=== PATIENT | female | born 2000 | race Caucasian/White ===

== ENCOUNTER 2025-09-20 11:20 | Emergency (ER) | payer OTHER, SELFPAY ==
--- OUTSIDE RECORDS SUMMARY | 2025-09-20 11:22 | XMS_ITS | Clinical Summary ---
Author Organization [facility] Address [address] [place] [address] Care Team Providers Care Brand Marketing Manager Name Role Phone No, Pcp INTERNATIONAL REPRESENTATIVE Primary Care Provider Unavailabl e Medications No known medications Social History Tobacco Use Types Packs/Day Years Used Date Smoking Tobacco: Never Assessed Comments Unknown Sex and Gender Information Value Date Recorded Sex Assigned at Not on file Legal Sex Female 4:03 PM EST Gender Identity Not on file Sexual Orientation Not on file Plan of Treatment Not on file Medical Devices Not on file Insurance [employer] Care Teams Brand Marketing Manager Relationship Specialty Start Date End Date No, Pcp, INTERNATIONAL REPRESENTATIVE N/A Do not use PCP - General Family Medicine 08/18/20
--- OUTSIDE RECORDS SUMMARY | 2025-09-20 11:22 | XMS_ITS | Clinical Summary ---
Author Organization [facility] Address [address] [place] [address] Phone Care Team Providers Care Service Cashier Name Role Phone Abel Echevarria MD Primary Care Provider Allergies Active Allergy Reactions Criticality Noted Date Comments Doxycycline Other (see Comments) Low 04/10/2022 Pt reports N/V and states her temp spiked to 103 Penicillins Rash 07/19/2018 Sulfa Antibiotics Rash 07/19/2018 Medications levoFLOXacin (LEVAQUIN) 500 MG Tablet Take 1 Tab by mouth daily. Take your 1st dose on ThursdayApril 19 4 Tab 04/18/2019 Active metroNIDAZOLE (FLAGYL) 500 MG Tablet Take 1 Tab by mouth 3 times daily. Starting with your 1st dose at bedtime tonight 13 Tab 04/18/2019 Active sertraline (ZOLOFT) 25 MG Tablet Take 25 mg by mouth daily. 08/07/2020 Active escitalopram (LEXAPRO) 10 MG Tablet Take 5 mg by mouth daily. 10/21/2020 Active ibuprofen (MOTRIN) 800 MG Tablet Take 1 Tablet by mouth every 8 hours as needed for Moderate or more severe pain. 60 Tablet 01/01/2021 Active magnesium oxide (MAG-OX) 400 MG Tablet Take 1 Tablet by mouth daily. 30 Tablet 5 04/26/2023 Active potassium chloride (MICRO-K) 10 MEQ Capsule CR Take 1 Capsule by mouth 2 times daily. 60 Capsule 1 04/26/2023 Active Active Problems Problem Noted Date Diagnosed Date Anxiety 01/04/2021 Seasonal affective disorder 02/03/2018 Adjustment disorder with anxiety 02/03/2018 Family History Medical History Relation Name Comments No Known Problems Father Jason Hypertension Mother Dede Asthma Sister Candelaria Relation Name Status Comments Father Jason Alive Mother Dede Alive Sister Candelaria Alive Social History Tobacco Use Types Packs/Day Years Used Date Smoking Tobacco: Never Smokeless Tobacco: Never Alcohol Use Standard Drinks/Week Comments No 0 (1 standard drink = 0.6 oz pur e alcohol) PHQ-2 Answer Date Recorded PHQ-2 Score 1 11/04/2019 Sexually Active Control Partners Comments Never Male Comments No Sex and Gender Information Value Date Recorded Sex Assigned at Not on file Legal Sex Female 9:33 PM CDT Gender Identity Not on file Sexual Orientation Not on file Last Filed Vital Signs Vital Sign Reading Time Taken Comments Blood Pressure 137/72 07/18/2023 4:53 PM CDT Pulse 65 07/18/2023 4:53 PM CDT Temperature 36.1 C (97 F) 07/18/2023 4:53 PM CDT Respiratory Rate 14 07/18/2023 4:53 PM CDT Oxygen Saturation 99% 07/18/2023 4:53 PM CDT Inhaled Oxygen Concentration - - Weight 117.9 kg (260 lb) 07/18/2023 12:02 PM CDT Height 162.6 cm (5' 4) 07/18/2023 12:02 PM CDT Body Mass Index 44.63 07/18/2023 12:02 PM CDT Plan of Treatment Health Maintenance Due Date Last Done Comments Hepatitis C Virus (HCV) Screening 2000 Influenza Immunization (#1) 05/29/202502/2022, 08/07/2020, 06/24/2018, Additional history exists SARS-COV-2 Immunization ( season) 2025 10/25/2021, 01/14/2021, 12/24/2020 Respiratory Syncytial Virus (RSV) Immunization (Adult) (1 - 1-dose 75+ series) 12/16/2075 Pneumococcal Immunization Combined Aged Out 06/25/2001, 06/25/2001, 04/23/2001, Additional history exists No longer eligible based on patient's age to complete this topic Hepatitis B Immunization Completed 002, 03/17/2002, 04/23/2001, Additional history exists DTaP/Tdap/Td Immunization Discontinued 2011, 04/30/2006, 03/17/2002, Additional history exists TdaP Immunization Completed 04/06/2012 Varicella Immunization Completed 06/15/2012, 2001 Human Papillomavirus (HPV) Immunization Completed 10/19/2012, 06/15/2012, 06/15/2012, Additional history exists Meningococcal Immunization (ACWY) Completed 06/24/2018, 06/15/2012, 06/15/2012 Meningococcal B Immunization Discontinued 10/03/2021 Rotavirus Immunization Aged Out No lo nger eligible based on patient's age to complete this topic Goals Goal Patient Goal Type Associated Problems Recent Progress Patient-Stated? Author Behavioral Health Behavioral Health On track( 021 1:41 PM BEHAVIOUR SUPPORT TEACHER) Ashley De Santiago LCSW Note: Patient to report a decrease in the intensity and frequency of anxiety and depressive symptoms. Insurance [employer] [facility] Care Teams Service Cashier Relationship Specialty Start Date End Date Abel Echevarria MD [address] [facility] [facility] [address] [facility] [place] [address] PCP - General Family Medicine 04/18/19
--- OUTSIDE RECORDS SUMMARY | 2025-09-20 11:22 | XMS_ITS | Clinical Summary ---
Author Organization [facility] Address [address] [place] [id number] Care Team Providers Care Die Stamping Press Operator Name Role Phone Unavailable Primary Care Provider Unavailabl e Social History Tobacco Use Types Packs/Day Years Used Date Smoking Tobacco: Never Assessed Comments Unknown Sex and Gender Information Value Date Recorded Sex Assigned at Not on file Legal Sex Female 7:56 AM CDT Gender Identity Not on file Sexual Orientation Not on file Last Filed Vital Signs Vital Sign Reading Time Taken Comments Blood Pressure 118/74 04/27/2012 3:16 PM CDT Pulse 88 04/27/2012 3:16 PM CDT Temperature - - Respiratory Rate - - Oxygen Saturation - - Inhaled Oxygen Concentration - - Weight 73.5 kg (162 lb) 04/27/2012 3:16 PM CDT Height 149.9 cm (4' 11) 04/27/2012 3:16 PM CDT Body Mass Index 32.72 04/27/2012 3:16 PM CDT Plan of Treatment Health Maintenance Due Date Last Done Comments Cervical Cancer Screening Pap Smear (Age 21 to 29) Every 3 Years 2000 Cervical Cancer Screening 2000 Annual Physical 12/16/2003 HPV Vaccines (3 - 2-dose series) 01/11/2013 10/19/2012, 08/14/2012, 04/06/2012 Hepatitis C 2018 DTaP, Tdap and Td Vaccines (7 - Td or Tdap) 04/06/2022 04/06/2012, 04/30/2006, 03/17/2002, Additional history exists COVID-19 Vaccine (2024- season) 2025 Influenza Adult (#1) 2025 Pneumococcal Vaccine: Pediatrics (0 to 5 Years) and At-Risk Patients (6 to 49 Years) Aged Out 06/25/2001, 04/23/2001, 02/18/2001 No longer eligible based on patient's age to complete this topic Hepatitis B Vaccines Completed 03/17/2002, 04/23/2001, 02/18/2001 Meningococcal Vaccine Aged Out 06/15/2012 No garcia vladimir eligible based on patient's age to complete this topic Hepatitis A Vaccines Completed 10/19/2012, 04/06/20 12 Meningococcal B Vaccine Aged Out No l onger eligible based on patient's age to complete this topic RSV Immunizations Under 20 Months Aged Out No longer eligible based on patient's age to complete this topic
--- OUTSIDE RECORDS SUMMARY | 2025-09-20 11:22 | XMS_ITS | Clinical Summary ---
Author Organization [facility] Address [address] [place] [address] Phone Care Team Providers Care Tray Server Name Role Phone Kera Rashid NP Primary Care Provider [phone] Allergies Active Allergy Reactions Criticality Noted Date Comments Doxycycline Chills,Nausea & Vomiting Low 04/10/2022 Penicillins Rash Medium 07/19/2018 Sulfa (Sulfonamide Antibiotics) Sulfasalazine Rash Medium 07/19/2018 Medications escitalopram (LEXAPRO) 10 mg tabletIndication s:Adjustment disorder with anxiety,Seasonal affective disorder,Dysthym ia Take 1 tablet (10 mg) by mouth daily 90 tablet 3 12/01/2024 Active Active Problems Problem Noted Date Diagnosed Date ADHD (attention deficit hype ractivity disorder), 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 If patient's symptoms continue RAST testing will be discussed. Patient to follow up in 3 months. Seasonal affective disorder 02/03/2018 Assessment & Plan (11/04/2024 2:25 PM DELIVERY MGR): Lexapro 5 mg Assessment & Plan (10/30/2023 2:43 PM DELIVERY MGR): PHQ Screening PHQ-2 Total Score (If total score is 3 or more points, staff should administer the PHQ-9): 2 PHQ-9 Total Score: 5 Escitalopram 5 ng Adjustment disorder with anxiety 02/03/2018 Assessment & Plan (11/04/2024 2:35 PM DELIVERY MGR): Last month has been increased mainly due to the world issues, but she is managing Assessment & Plan (10/30/2023 2:43 PM DELIVERY MGR): Stable, chronic condition Dysthymia 11/27/2017 Assessment & Plan (10/30/2023 2:43 PM DELIVERY MGR): PHQ Screening PHQ-2 Total Score (If total score is 3 or more points, staff should administer the PHQ-9): 2 PHQ-9 Total Score: 5 Escitalopram 5 mg Class 3 severe obesity due t o excess calories without serious comorbidity with body mass index (BMI) of 45.0 to 49.9 in adult 03/22/2015 Overview (01/02/2017): Obesity Assessment & Plan (11/04/2024 2:36 PM DELIVERY MGR): Wt Readings from Last 3 Encounters: 11/04/24 122.9 kg (271 lb) 09/23/24 122.7 kg (270 lb 6.4 oz) 04/29/24 123 kg (271 lb 3.2 oz) BMI Follow-up includes: education provided. Assessment & Plan (04/29/2024 1:37 PM CDT): BMI Follow-up includes: education provided. Assessment & Plan (10/30/2023 2:41 PM DELIVERY MGR): BMI Follow-up includes: education provided. Resolved Problems Problem Noted Date Diagnosed Date Resolved Date Eustachian tube dysfunction, bilateral 08/26/2018 11/04/2024 Assessment & Plan (08/26/2018 3:36 PM DELIVERY MGR): Patient educated on the importance of medication compliance. Patient advised to restart flonase BID. Patient educated on proper nasal spray administration and how to perform saline irrigation. Also discussed with patient again about the possibility about ventilation tube placement. Patient also instructed to perform valsalva maneuver multiple times throughout the day to Promote middle ear ventilation. Patient should follow up in 6 weeks. Prematurity of fetus 03/22/2015 024 Overview (01/02/2017): Prematurity Immunizations Immunization Administration Dates Next Due DTaP 04/30/2006, 2,06/25/2001,04/23,02/18/2001 HPV, Quadrivalent 10/19/2012,06/15/2012,04/06/20 12 HPV, Unspecified 06/15/2012,04/06/2012 Hep A, Pediatric 10/19/2012,04/06/2012 Hep B / HiB 03/17/2002,04/23/2001,02/18/2001 Hep B, Adolescent or Pediatric 03/17/2002,2000,02/18/2001 Hib (PRP-T) 03/17/2002,04/23/2001,02/18/2001 IPV 04/30/2006, 1,04/23/2001,02/18 Influenza, Quadrivalent, Spl it, Preservative Free, Intramuscular 10/03/2021,08/07/2020,06/24/2018 Influenza, Trivalent, Preser vative Free, Intramuscular 11/04/2024,10/19/2012 Influenza, Unspecified 10/30/2023(Deferr ed: Patient Refused),08/08/2023(Deferred: Patient Refused),07/02/2023(Deferred: Patient Refused),07/02/2023(Deferred: Patient Refused),06/29/2023(Deferred: Patient Refused) MMR 04/30/2006,12/30/2001 Meningococcal B, OMV (Bexsero) 10/03/2021 Meningococcal MCV4, Unspecified 06/15/2012 Meningococcal MCV4P (Menactra) 06/24/2018,2011 Pfizer SARS-CoV-2 Monovalent Vaccination (12+ Yrs) QUINTEROS-READY TO USE 10/25/2021 Pfizer SARS-CoV-2 Monovalent Vaccination (12+ Yrs) PURPLE 01/14/2021,12/24/2020 Pneumococcal Conjugate 7-Valent 06/25/2001,04/23,02/18/2001 Pneumococcal Conjugate PCV 13 06/25/2001, 001,02/18/2001 Tdap 04/06/2012 Varicella 06/15/2012,12/30/2001 Surgical History Surgery Date Site/Laterality Comments OTHER SURGICAL HISTORY CHANG: adenoidectomy, myringotomy tubes Medical History Medical History Date Comments Hx Other Medical CHANG Ear problems Prematurity of fetus 03/22/2015 Prematurity Eustachian tube dysfunction, bilateral 8 Family History Medical History Relation Name Comments Diabetes Other 1 Family history of Diabetes mellitus; Cancer Other 2 Family history of Cancer, unknown; Alcohol abuse Other 3 Family history of Alcoholism; Hypertension Other 4 Family history of Hypertension; Relation Name Status Comments Other 1 Other 2 Other 3 Other 4 Social History Tobacco Use Types Packs/Day Years Used Date Smoking Tobacco: Never Smokeless Tobacco: Never Tobacco Cessation:Counseling Given: Not Answered Alcohol Use Standard Drinks/Week Comments No 0 (1 standard drink = 0.6 oz pur e alcohol) PHQ-2 Answer Date Recorded PHQ-2 Total Score 0 11/04/2024 PHQ-9 Answer Date Recorded PHQ-9 Total Score 0 11/04/2024 Comments No Sex and Gender Information Value Date Recorded Sex Assigned at Not on file Legal Sex Female 1:37 AM DELIVERY MGR Gender Identity Not on file Sexual Orientation Not on file Last Filed Vital Signs Vital Sign Reading Time Taken Comments Blood Pressure 118/84 11/04/2024 2:25 PM DELIVERY MGR Pulse 94 11/04/2024 2:25 PM DELIVERY MGR Temperature 36.9 C (98.5 F) 09/23/2024 6:48 PM DELIVERY MGR Respiratory Rate 21 09/23/2024 6:48 PM DELIVERY MGR Oxygen Saturation 100% 11/04/2024 2:25 PM DELIVERY MGR Inhaled Oxygen Concentration - - Weight 122.9 kg (271 lb) 11/04/2024 2:25 PM DELIVERY MGR Height 162.6 cm (5' 4) 11/04/2024 2:25 PM DELIVERY MGR Body Mass Index 46.52 11/04/2024 2:25 PM DELIVERY MGR Plan of Treatment Health Maintenance Due Date Last Done Comments Cervical Cancer Screening 2000 DTaP/Tdap/Td Vaccine (7 - Td or Tdap) 04/06/2022 04/06/2012, 04/30/2006, 03/17/2002, Additional history exists Covid-19 Vaccine ( season) 2025 10/25/2021, 01/14/2021, 12/24/2020 Influenza Vaccine (#1) 2025 , 10/03/2021, 08/07/2020, Additional history exists Depression Screening 11/04/2025 11/04/2024, 11/04/2024, 04/29/2024, Additional history exists Regular Well Visit/Exam 18-64 11/04/2025 11/04/2024, 10/30/2023 Pneumococcal vaccine <65 Aged Out 001, 06/25/2001, 04/23/2001, Additional history exists No longer eligible based on patient's age to complete this topic Hepatitis B Screening Completed 03/17/2002 , 03/17/2002, 04/23/2001, Additional history exists Varicella Vaccines Completed 06/15/2012, 12/30/2001 HPV Vaccines Completed 10/19/2012, 05/29, 06/15/2012, Additional history exists Hepatitis C Screening Completed 11/04/2024 Procedures Procedure Name Priority Date/Time Associated Diagnosis Comments HEPATITIS C ANTIBODY Routine 11/04/2024 3:04 PM DELIVERY MGR Encounter for HCV screening test for low risk patient from Last 3 Months or Most Recently Relevant to Health Maintenance Results * Hepatitis C antibody Blood (11/04/2024 3:04 PM DELIVERY MGR) Hep C Ab Nonreactive Nonreactive Comment: Interpretive Data Nonreactive: Antibodies to HCV not detected. Does NOT exclude the possibility of recent exposure to HCV. Equivocal: Equivocal for HCV antibodies. Supplemental molecular testing will be automatically performed to determine infection status in accordance with current CDC screening recommendations. Reactive: Positive for HCV antibodies. This may represent current or past HCV infection. Supplemental molecular testing will be automatically performed to determine current infection status in accordance with current CDC screening recommendations. Interpretive data was last revised on 2019. Blood 11/04/2024 3:04 PM DELIVERY MGR 11/04/2024 6:51 PM DELIVERY MGR Kera Rashid NP LAB MICROBIOLOGY - GENERAL ORDER ALBERT Final Result [facility] [id number] Department [place] [address] from Last 3 Months or Most Recently Relevant to Health Maintenance Insurance [facility] [id number] [facility] [id number] Care Teams Tray Server Relationship Specialty [place] [phone] [address] PCP - General Family Medicine 10/30/23
[2025-09-20 11:40] VITALS: BP 138/68; PULSE 83; RESP 20; TEMP 36.7; O2SAT 98
--- NOTE | 2025-09-20 12:53 | ED.URI ---
HPI - URI/Sore Throat General Chief Complaint: Upper Respiratory Infection Stated Complaint: sinus pressure/ear pain Time Seen by Provider: 09/20/25 12:45 Source: patient, RN notes reviewed and old records reviewed Mode of arrival: ambulatory Limitations: no limitations History of Present Illness HPI Narrative: 24-year-old female who presents to [facility] with complaints of 4 day history of sinus pain and pressure and right ear pain. Patient reports that she has not had any body aches or fevers. Patient reports that she has been taking Felisha Mossyrock cold and flu medications for her symptoms. MD elicited complaint: rhinorrhea, nasal congestion, sinus pain and other (ear) Onset (ago): day(s) (4) Pain scale (0-10): 7 Able to tolerate fluids by mouth: Yes Treatments prior to arrival: other (Felisha Mossyrock cold and flu) Related Data Home Medications ?Medication ?Instructions ?Recorded ?Confirmed ?Last Taken ?Type escitalopram oxalate 10 mg tablet mg 09/20/25 Unknown History Allergies Allergy/AdvReac Type Severity Reaction Status Date / Time doxycycline Allergy Intermediate Rash Verified 09/20/25 12:21 Penicillins Allergy Intermediate rash Verified 09/20/25 12:21 Sulfa (Sulfonamide Allergy Intermediate rash Verified 09/20/25 12:21 Antibiotics) Review of Systems Review of Systems: CONSTITUTIONAL: Denies malaise, chills, sweats, or fever. EYES: Denies visual changes, redness, or discharge. ENT: Reports rhinorrhea, congestion, sinus pain,right otalgia and no sore throat. CARDIOVASCULAR: Denies chest pain, palpitations, or edema. RESPIRATORY: Reports cough.? Denies dyspnea. GASTROINTESTINAL: Denies abdominal pain, nausea, vomiting, diarrhea SKIN: Denies rash or itching. MUSCULOSKELETAL: Denies myalgia. NEUROLOGIC: Denies headache. All systems reviewed & are unremarkable except as noted in HPI and below PMFSH Past Medical History Medical History (Updated 09/21/25 @ 20:16 by Miranda Chase APRN) Otitis media Surgical History Surgical History (Updated 09/21/25 @ 20:10 by Miranda Chase APRN) History of adenoidectomy History of placement of ear tubes Social History Social History (Updated 09/21/25 @ 20:10 by Miranda Chase APRN) Smoking status: Never smoker Alcohol intake: current Alcohol use details: social Substance use type: does not use Gender identity (if verbalized by the patient): Female Comments At time of signature, agree with nursing past medical, surgical, social and family history. There is no relevant family history pertinent to the presenting complaint Exam Narrative: GENERAL: Well-appearing, well-nourished, and in no acute distress. HEAD: Normocephalic EYES: PERRLA, conjunctivae clear ENT: Nares clear, turbinates edematous and erythematous, clear discharge sinus pressure.. Mucous membranes moist.Right TM red, Left TM pearly contreras with dull light reflex bilaterally; no tragal tenderness. Oropharynx erythematous without lesions. Tonsils not enlarged and without exudate, no drooling, no hoarseness, no trismus, uvula midline post nasal drainage.. NECK: Supple. No lymphadenopathy CHEST: Clear to auscultation, breath sounds equal. No wheezing, rhonchi, rales, or stridor. No respiratory distress, speaks in full sentences. no cough noted SAO2 98% on room air HEART: Regular rate and rhythm. No murmur heard. SKIN: Warm, dry, no rash. NEURO: Alert and oriented x3. PSYCH: Normal mood and affect Course Course Level of Care: Express Care Visit Vital Signs Vital signs: Vital Signs Temperature 36.7 C 09/20/25 11:40 Pulse Rate 83 09/20/25 11:40 Respiratory Rate 20 09/20/25 11:40 Blood Pressure 138/68 09/20/25 11:40 Pulse Oximetry 98 09/20/25 11:40 Oxygen Delivery Room Air 09/20/25 11:40 Temperature 36.7 C 09/20/25 11:40 Pulse Rate 83 09/20/25 11:40 Respiratory Rate 20 09/20/25 11:40 Blood Pressure 138/68 09/20/25 11:40 Pulse Oximetry 98 09/20/25 11:40 Oxygen Delivery Room Air 09/20/25 11:40 reviewed MDM MDM Narrative Medical decision making narrative: 24 year old female with 4 days of sinus congestion with pressure drainage and right ear pain. DX URI and otitis media of right ear will RX azithromycin antibiotic. Patient instructed to use medications OTC to treat pain and sinus condgestion and pressure. Patient agrees with plan of care. Anticipatory guidance and reasons to seek care in ED reviewed Differential Diagnosis Differential Diagnosis: Differential diagnostic considerations for upper respiratory infection include upper respiratory infection, croup, otitis media, sinusitis, viral infection, bronchitis, influenza, pharyngitis, strep, uvulitis.? Critical Care Time Critical Care Time Critical Care Time: No Discharge Plan Discharge Clinical Impression: Upper respiratory infection Qualifiers: URI type: unspecified URI Qualified Code(s): J06.9 - Acute upper respiratory infection, unspecified Otitis media, right Qualifiers: Otitis media type: serous Chronicity: acute Recurrence: non-recurrent Qualified Code(s): H65.01 - Acute serous otitis media, right ear Patient Disposition: Home Condition: Stable Instructions: Antibiotic Form, Ear Infection (GEN), Upper Respiratory Infection (ED) Additional Instructions: Increase fluids especially juices and water [id number] cough and cold medicine of your choice for your symptoms Zyrtec Claritin or Rosalinda daily can take plain Sudafed in the a.m. Tylenol or ibuprofen for any fever pain heat to the face 20-30 minutes 4-6 times a day for pain Salt water gargles, throat lozenges or throat sprays as desired Antibiotic as directed--finished the medication If your symptoms persist, change or worsen significantly before you can contact your personal physician then please, without delay, go to the emergency department for further evaluation. Follow-up with PCP in 7-10 days or sooner if needed Follow up with PCP soon in regards to your blood pressure which is elevated above threshold for referral. Blood pressure above 120/80 may indicate pre-hypertension. mild elevation at 138/68 Patient Language: Spanish Prescriptions: New azithromycin 250 mg tablet See Rx Instructions .ROUTE .COMPLEX Qty: 6 0RF Rx Instructions: For 250 mg dose pack: take 500 mg today (day 1), then 250 mg for 4 days (days 2-5) No Action escitalopram oxalate 10 mg tablet Follow-up/Referrals: PHYSICIAN NOT ON STAFF,NONSTAFF [Primary Care Provider] Stand Alone Forms: Work/School Release IP Time of Disposition: 13:01 Quality Gretta Coma Scale Eyes: Open Verbal: Oriented and Alert Motor: Follows Commands Gretta Coma Total Score: 15
== END 2025-09-20 13:13 | disposition home or self-care (01) ==
PROVIDERS: Emergency Provider Registered Nurse
DX: J06.9 Acute upper respiratory infection, unspecified (principal); H65.01 Acute serous otitis media, right ear
CPT/HCPCS: 99203; G0463